=== PATIENT | female | born 1985 | race Caucasian/White ===

== ENCOUNTER 2020-03-21 07:46 | Emergency (ER) | payer OTHER ==
[~2020-03-21] VITALS: Ht 162.6 cm; Wt 66.7 kg
[2020-03-21 08:23] LABS: ABSOLUTE LYMPHOCYTES 1.7 thou/uL (0.8-5.3); ABSOLUTE MONOCYTES 0.3 thou/uL (0.0-1.2); ABSOLUTE NEUTROPHILS 3.3 thou/uL (1.6-8.1); BASOPHILS 0.3 %; EOSINOPHILS 0.8 %; HEMATOCRIT 41.1 % (37.0-47.0); HEMOGLOBIN 13.5 gm/dL (12.0-15.0); LYMPHOCYTES 32.2 %; MCH 29.1 pg (26.0-34.0); MCHC 32.9 g/dL (28.0-37.0); MCV 88.4 fL (80.0-100.0); MONOCYTES 5.7 %; MPV 7.8 fl. (7.2-11.1); NUCLEATED RBCS 0 /100WBC; PLATELET COUNT* 227 thou/uL (150-400); RBC 4.65 mil/uL (4.20-5.00); RDW-CV 13.2 % (10.5-14.5); WBC 5.4 thou/uL (4.0-11.0)
[2020-03-21 08:30] LABS: APTT 25.4 Seconds (25.0-31.3); PROTIME 10.9 Seconds (9.20-11.50)
[2020-03-21 08:45] LABS: CALCIUM 8.3 mg/dL (8.5-10.1); CREATININE 0.7 mg/dL (0.6-1.3); POTASSIUM 4.1 mmol/L (3.5-5.1)
[2020-03-21 09:00] LABS: CK-MB MASS 0.9 ng/mL (<0.5-3.6); MAGNESIUM 1.9 mg/dL (1.8-2.4); TOTAL BILIRUBIN 0.5 mg/dL (<0.1-1.0); TOTAL PROTEIN 7.3 g/dL (6.4-8.2)
[2020-03-21 09:34] VITALS: BP 124/83
--- NOTE | 2020-03-21 16:13 | EKG ---
[place] [address] ELECTROCARDIOGRAM REPORT Name: TYSHAWN MARQUES Room: [facility]#: [id number] Admission: 03/21/20 Attend Phys: Discharge: 03/21/20 Date of : 89 Date of Service: 03/21/20 0757 Report #: [id number] THIS REPORT FOR: //name// [facility] ED Test Date: 2020-03-21 Test Time: 07:57:08 Pat Name: TYSHAWN MARQUES Department: Room: Gender: Journeyman Lineman: [facility] : 1985 Requested By: Sin Carney Order Number: [id number] MD: Sandro Gutierrez Measurements Intervals [place] Rate: 100 P: 69 KS: 131 QRS: 24 QRSD: 102 T: 41 QT: 342 QTc: 442 Interpretive Statements Sinus tachycardia No previous ECG available for comparison Electronically Signed On 03-21-2020 16:13:05 [employer]CHITECT by Sandro Gutierrez [email or web address] <ELECTRONICALLY SIGNED> By: Sandro Gutierrez MD, [facility] 03/21/20 1613 0757 0757 Sandro Gutierrez MD, FACC /EPI
== END 2020-03-21 09:35 | disposition home or self-care (01) ==
LOC: M.ERS 07:46
PROVIDERS: Family Medicine
DX: R00.2 Palpitations (principal)